=== PATIENT | male | born 1980 | race Hispanic/Latino ===

== ENCOUNTER 2021-06-09 21:16 | Emergency (ER) | payer BC ==
[~2021-06-09] VITALS: Ht 167.6 cm; Wt 85.3 kg
[2021-06-09 22:10] LABS: BASOPHILS % (AUTO) 0.4 % (0.0-5.0); EOSINOPHILS % (AUTO) 0.3 % (0.0-8.0); HEMATOCRIT 45.8 % (42-54); LYMPHOCYTES % (AUTO) 21.1 % (21.0-51.0); MEAN CORPUSCULAR HEMOGLOBIN 31.9 pg (27.0-33.0); MEAN CORPUSCULAR HGB CONC 34.9 g/dL (32.0-36.0); MEAN CORPUSCULAR VOLUME 91.2 fL (79-99); MONOCYTES % (AUTO) 7.4 % (3.0-13.0); NEUTROPHILS % (AUTO) 70.2 % (40.0-77.0); PLATELET COUNT (AUTO) 228 K/uL (130-400); RED BLOOD CELL COUNT(AUTO) 5.02 MIL/uL (4.50-6.20); RED CELL DISTRIBUTION WIDTH 12.5 % (11.0-15.5); WHITE BLOOD COUNT (AUTO) 10.3 K/uL (4.8-10.8)
[2021-06-09 22:22] LABS: APPEARANCE,URINE CLEAR (CLEAR); BILIRUBIN,URINE NEGATIVE (NEGATIVE); COLOR,URINE YELLOW (YELLOW); GLUCOSE, URINE (UA) NEGATIVE (NEGATIVE); KETONES,URINE NEGATIVE (NEGATIVE); LEUKOCYTE ESTERASE ,URINE NEGATIVE (NEGATIVE); NITRATE,URINE NEGATIVE (NEGATIVE); OCCULT BLOOD,URINE NEGATIVE (NEGATIVE); PROTEIN,URINE NEGATIVE (NEGATIVE); UROBILINOGEN,URINE 0.2 mg/dL (0.2-1.0)
[2021-06-09 22:36] LABS: ALBUMIN 4.2 g/dL (3.5-5.0); BILIRUBIN,TOTAL 0.8 mg/dL (0.2-1.0); CREATININE 0.9 mg/dL (0.5-1.5); POTASSIUM 4.3 mmol/L (3.5-5.1); TOTAL PROTEIN, SERUM 8.1 g/dL (6.0-8.3)
[2021-06-09] MEDS ORDERED: HYDR-3422 PO (22:39)
[2021-06-09 23:23] VITALS: BP 132/75
== END 2021-06-09 23:23 | disposition home or self-care (01) ==
LOC: EDH 21:16
DX: F41.9 Anxiety disorder, unspecified (principal); Z79.899 Other long term (current) drug therapy
CPT/HCPCS: 36415; 80053; 81003; 84484; 85025; 93005

== ENCOUNTER 2022-01-15 01:31 | Emergency (ER) | payer BC, OTHER ==
[~2022-01-15] VITALS: Ht 167.6 cm; Wt 95.3 kg
[~2022-01-15 01:31] MED LIST: HYDR-3422 PO
[2022-01-15 01:33] VITALS: BP 144/95
[2022-01-15 02:01] LABS: BASOPHILS % (AUTO) 0.6 % (0.0-5.0); EOSINOPHILS % (AUTO) 2.1 % (0.0-8.0); HEMATOCRIT 45.1 % (42-54); LYMPHOCYTES % (AUTO) 30.8 % (21.0-51.0); MEAN CORPUSCULAR HEMOGLOBIN 31.9 pg (27.0-33.0); MEAN CORPUSCULAR HGB CONC 35.9 g/dL (32.0-36.0); MEAN CORPUSCULAR VOLUME 88.8 fL (79-99); MONOCYTES % (AUTO) 8.6 % (3.0-13.0); NEUTROPHILS % (AUTO) 57.5 % (40.0-77.0); PLATELET COUNT (AUTO) 254 K/uL (130-400); RED BLOOD CELL COUNT(AUTO) 5.08 MIL/uL (4.50-6.20); RED CELL DISTRIBUTION WIDTH 12.1 % (11.0-15.5); WHITE BLOOD COUNT (AUTO) 8.9 K/uL (4.8-10.8)
[2022-01-15 02:03] LABS: APPEARANCE,URINE CLEAR (CLEAR); BILIRUBIN,URINE NEGATIVE (NEGATIVE); COLOR,URINE YELLOW (YELLOW); GLUCOSE, URINE (UA) NEGATIVE (NEGATIVE); KETONES,URINE NEGATIVE (NEGATIVE); LEUKOCYTE ESTERASE ,URINE NEGATIVE Leu/uL (NEGATIVE); NITRATE,URINE NEGATIVE (NEGATIVE); OCCULT BLOOD,URINE NEGATIVE (NEGATIVE); PROTEIN,URINE 10 mg/dL (NEGATIVE); UROBILINOGEN,URINE 3 mg/dL (0.2-1.0)
[2022-01-15 02:11] LABS: MUCUS,URINE RARE LPF (None Seen); RBC,URINE 0-1 /HPF (0-1); WBC,URINE 0-1 /HPF (0-1)
[2022-01-15 02:18] LABS: ALBUMIN 4.1 g/dL (3.5-5.0); POTASSIUM 3.9 mmol/L (3.5-5.1)
[2022-01-15] MEDS ORDERED: ONDA-104 PO (03:04)
[2022-01-15] MEDS ORDERED: OMEP40CA21 PO (03:04)
[2022-01-15] MEDS ORDERED: OSEL75 PO (04:14)
== END 2022-01-15 04:24 | disposition home or self-care (01) ==
LOC: EDH 01:31
DX: J10.1 Influenza due to other identified influenza virus with other respiratory manifestations (principal); Z20.822 Contact with and (suspected) exposure to COVID-19
CPT/HCPCS: 99283; 87635; 80053; 83690; 85025; 87804 ×2; 81001; 36415; C9803

== ENCOUNTER 2022-06-07 04:24 | Emergency (ER) | payer SELFPAY ==
[~2022-06-07] VITALS: Ht 167.6 cm; Wt 96.4 kg
[~2022-06-07 04:24] MED LIST changes: +ONDA-104 PO; +OSEL75 PO
[2022-06-07 04:50] LABS: BASOPHILS % (AUTO) 0.6 % (0.0-5.0); HEMATOCRIT 49.3 % (42-54); MEAN CORPUSCULAR HEMOGLOBIN 31.7 pg (27.0-33.0); MEAN CORPUSCULAR HGB CONC 35.7 g/dL (32.0-36.0); MEAN CORPUSCULAR VOLUME 88.8 fL (79-99); MONOCYTES % (AUTO) 10.2 % (3.0-13.0); NEUTROPHILS % (AUTO) 48.9 % (40.0-77.0); PLATELET COUNT (AUTO) 252 K/uL (130-400); RED BLOOD CELL COUNT(AUTO) 5.55 MIL/uL (4.50-6.20); RED CELL DISTRIBUTION WIDTH 12.7 % (11.0-15.5); WHITE BLOOD COUNT (AUTO) 9.3 K/uL (4.8-10.8)
[2022-06-07 04:51] LABS: APPEARANCE,URINE CLEAR (CLEAR); BILIRUBIN,URINE NEGATIVE (NEGATIVE); COLOR,URINE YELLOW (YELLOW); GLUCOSE, URINE (UA) NEGATIVE (NEGATIVE); KETONES,URINE NEGATIVE (NEGATIVE); LEUKOCYTE ESTERASE ,URINE NEGATIVE Leu/uL (NEGATIVE); NITRATE,URINE NEGATIVE (NEGATIVE); OCCULT BLOOD,URINE NEGATIVE (NEGATIVE); PH,URINE 5.5 (5.0-8.0); PROTEIN,URINE 20 mg/dL (NEGATIVE)
[2022-06-07 04:58] LABS: BACTERIA,URINE FEW /HPF (None Seen); CREATININE 1.1 mg/dL (0.5-1.5); MUCUS,URINE MOD LPF (None Seen); POTASSIUM 3.7 mmol/L (3.5-5.1); SQUAMOUS EPITHELIAL CELL,UR RARE /HPF (0-2)
[2022-06-07] MEDS ORDERED: MORPHINE 2 MG SYG IVP ONE (05:00)
[2022-06-07] MEDS ORDERED: ONDANSETRON 4MG INJ IVP ONE (05:00)
[2022-06-07] MEDS ORDERED: KETOROLAC 30MG VIAL (30MG/ML) IVP ONE (05:00)
[2022-06-07 05:02] LABS: ALBUMIN 3.7 g/dL (3.5-5.0); TOTAL PROTEIN, SERUM 6.6 g/dL (6.0-8.3)
[2022-06-07] MEDS ORDERED: IBUP-1493 PO (05:09)
[2022-06-07] MEDS ORDERED: OMEP40CA21 PO (05:09)
[2022-06-07] MEDS ORDERED: ONDA-104 PO (05:09)
[2022-06-07 05:31] VITALS: BP 124/66
== END 2022-06-07 05:37 | disposition home or self-care (01) ==
LOC: EDH 04:24
DX: K80.20 Calculus of gallbladder without cholecystitis without obstruction (principal); I10 Essential (primary) hypertension; Z79.899 Other long term (current) drug therapy
CPT/HCPCS: 99285; 96374; 76705; 96375; 80053; 83690; 85025; 81001; 36415; J2270; J2405; J1885

== ENCOUNTER 2022-09-01 07:36 | Emergency (ER) | payer BC, OTHER ==
[~2022-09-01] VITALS: Ht 167.6 cm; Wt 94.3 kg
[~2022-09-01 07:36] MED LIST changes: +IBUP-1493 PO; +OMEP40CA21 PO
[2022-09-01] MEDS ORDERED: FAMOTIDINE 20MG TAB PO ONE (08:00)
[2022-09-01] MEDS ORDERED: METOCLOPRAMIDE 10 MG/2 ML VIAL IVP ONE (08:00)
[2022-09-01] MEDS ORDERED: MORPHINE 2 MG SYG IVP ONE (08:00)
[2022-09-01 08:14] LABS: BASOPHILS % (AUTO) 0.7 % (0.0-5.0); EOSINOPHILS % (AUTO) 2.7 % (0.0-8.0); HEMATOCRIT 47.6 % (42-54); LYMPHOCYTES % (AUTO) 29.9 % (21.0-51.0); MEAN CORPUSCULAR HEMOGLOBIN 30.8 pg (27.0-33.0); MEAN CORPUSCULAR HGB CONC 34.7 g/dL (32.0-36.0); PLATELET COUNT (AUTO) 231 K/uL (130-400); RED BLOOD CELL COUNT(AUTO) 5.35 MIL/uL (4.50-6.20); WHITE BLOOD COUNT (AUTO) 7.7 K/uL (4.8-10.8)
[2022-09-01 08:23] LABS: CREATININE 1.1 mg/dL (0.5-1.5); POTASSIUM 4.2 mmol/L (3.5-5.1)
[2022-09-01] MEDS ORDERED: HYDRALAZINE 20MG/ML VIAL IV ONE (08:30)
[2022-09-01 08:31] LABS: ALBUMIN 3.6 g/dL (3.5-5.0); TOTAL PROTEIN, SERUM 6.1 g/dL (6.0-8.3)
[2022-09-01] MEDS ORDERED: METO-296 PO (09:13)
[2022-09-01] MEDS ORDERED: FAMO-136 PO (09:13)
[2022-09-01 09:43] VITALS: BP 127/73
== END 2022-09-01 09:44 | disposition home or self-care (01) ==
LOC: EDH 07:36
DX: K80.20 Calculus of gallbladder without cholecystitis without obstruction (principal); K80.50 Calculus of bile duct without cholangitis or cholecystitis without obstruction; F17.210 Nicotine dependence, cigarettes, uncomplicated; Z79.1 Long term (current) use of non-steroidal anti-inflammatories (NSAID); Z79.899 Other long term (current) drug therapy
CPT/HCPCS: 99284; 96374; 76705; 71045; 96375; 84484; 80053; 83690; 85025; 36415; J2270; J0360; J2765

== ENCOUNTER 2023-01-27 08:23 | Emergency (ER) | payer BC ==
[~2023-01-27] VITALS: Ht 167.6 cm; Wt 87.1 kg
[~2023-01-27 08:23] MED LIST changes: +FAMO-136 PO; +METO-296 PO
[2023-01-27 09:12] LABS: HEMATOCRIT 49.3 % (42-54); MEAN CORPUSCULAR HEMOGLOBIN 30.9 pg (27.0-33.0); MEAN CORPUSCULAR HGB CONC 34.7 g/dL (32.0-36.0); PLATELET COUNT (AUTO) 406 K/uL (130-400); RED BLOOD CELL COUNT(AUTO) 5.54 MIL/uL (4.50-6.20); RED CELL DISTRIBUTION WIDTH 12.8 % (11.0-15.5); WHITE BLOOD COUNT (AUTO) 11.2 K/uL (4.8-10.8)
[2023-01-27 09:27] LABS: POTASSIUM 4.2 mmol/L (3.5-5.1)
[2023-01-27] MEDS ORDERED: ONDANSETRON 4MG INJ IVP ONE (09:30)
[2023-01-27] MEDS ORDERED: KETOROLAC 30MG VIAL (30MG/ML) IVP ONE (09:30)
[2023-01-27 09:32] LABS: ALBUMIN 3.4 g/dL (3.5-5.0); BILIRUBIN,TOTAL 0.9 mg/dL (0.2-1.0); TOTAL PROTEIN, SERUM 7.5 g/dL (6.0-8.3)
[2023-01-27 10:49] VITALS: BP 148/70; PULSE 74; RESP 18; O2SAT 100
[2023-01-27 11:17] LABS: EOSINOPHILS % (MANUAL) 2 % (1-6); LYMPHOCYTES % (MANUAL) 16 % (22-44); MAN.DIFF COMMENT-IMPRESSION MANUAL DIFFERENTIAL; MONOCYTES % (MANUAL) 4 % (2-9); REACTIVE LYMPHOCYTES 1 % (0-0); SEGMENTED NEUTROPHILS % 77 % (40-70); TOTAL CELLS COUNTED 100
[2023-01-27 11:18] LABS: PLATELET MORPHOLOGY COMMENT SLIGHT INCREASED
[2023-01-27] MEDS ORDERED: IBUP-2070 PO (11:29)
== END 2023-01-27 11:38 | disposition home or self-care (01) ==
LOC: EDH 08:23
DX: K80.20 Calculus of gallbladder without cholecystitis without obstruction (principal); F17.200 Nicotine dependence, unspecified, uncomplicated; Z79.899 Other long term (current) drug therapy; Z98.890 Other specified postprocedural states
CPT/HCPCS: 99284; 74176; 96374; 96375; 84484; 80053; 83690; 85025; 36415; 93005; J2405; J1885

== ENCOUNTER 2023-04-03 10:03 | Emergency (ER) | payer BC ==
[~2023-04-03] VITALS: Ht 167.6 cm; Wt 87.1 kg
[~2023-04-03 10:03] MED LIST changes: +IBUP-2070 PO
[2023-04-03 10:04] VITALS: BP 174/99; PULSE 65
[2023-04-03 10:25] LABS: HEMATOCRIT 50.3 % (42-54); MEAN CORPUSCULAR HEMOGLOBIN 30.9 pg (27.0-33.0); MEAN CORPUSCULAR HGB CONC 35.6 g/dL (32.0-36.0); MEAN CORPUSCULAR VOLUME 86.9 fL (79-99); RED BLOOD CELL COUNT(AUTO) 5.79 MIL/uL (4.50-6.20); RED CELL DISTRIBUTION WIDTH 12.9 % (11.0-15.5); WHITE BLOOD COUNT (AUTO) 10.3 K/uL (4.8-10.8)
[2023-04-03 10:36] LABS: APPEARANCE,URINE CLEAR (CLEAR); BILIRUBIN,URINE NEGATIVE (NEGATIVE); COLOR,URINE LIGHT-YELLOW (YELLOW); GLUCOSE, URINE (UA) NEGATIVE (NEGATIVE); KETONES,URINE NEGATIVE (NEGATIVE); LEUKOCYTE ESTERASE ,URINE NEGATIVE Leu/uL (NEGATIVE); NITRATE,URINE NEGATIVE (NEGATIVE); OCCULT BLOOD,URINE NEGATIVE (NEGATIVE); PH,URINE 5.5 (5.0-8.0); PROTEIN,URINE NEGATIVE (NEGATIVE); UROBILINOGEN,URINE 0.2 mg/dL (0.2-1.0)
[2023-04-03 10:40] LABS: ADD UA MICROSCOPIC NO
[2023-04-03] MEDS: MAG/ALUM/SIMETH 30 ML UDCUP PO ONE (10:47)
[2023-04-03] MEDS: PANTOPRAZOLE 40 MG TAB DR PO ONE (10:47)
[2023-04-03] MEDS: KETOROLAC 30MG VIAL (30MG/ML) IM ONE (10:47)
[2023-04-03 11:09] LABS: POTASSIUM 4.7 mmol/L (3.5-5.1)
[2023-04-03 11:13] LABS: ALBUMIN 3.8 g/dL (3.5-5.0); BILIRUBIN,TOTAL 1.1 mg/dL (0.2-1.0); TOTAL PROTEIN, SERUM 7.7 g/dL (6.0-8.3)
== END 2023-04-03 12:25 | disposition home or self-care (01) ==
LOC: EDH 10:03
DX: R10.11 Right upper quadrant pain (principal); F17.200 Nicotine dependence, unspecified, uncomplicated; Z79.1 Long term (current) use of non-steroidal anti-inflammatories (NSAID); Z79.899 Other long term (current) drug therapy
CPT/HCPCS: 99284; 80053; 83690; 85027; 81003; 36415; 96372; J1885

== ENCOUNTER 2023-04-10 01:52 | Emergency (ER) | payer BC ==
[~2023-04-10] VITALS: Ht 167.6 cm; Wt 90.3 kg
[2023-04-10 02:13] LABS: BASOPHILS # (AUTO) 0.04 K/uL (0.00-0.20); BASOPHILS % (AUTO) 0.5 % (0.0-5.0); EOSINOPHILS # (AUTO) 0.13 K/uL (0.00-0.70); EOSINOPHILS % (AUTO) 1.6 % (0.0-8.0); HEMATOCRIT 50.6 % (42-54); IMMATURE GRANULOCYTE ABSOLUTE 0.04 K/uL (0-1); LYMPHOCYTES # (AUTO) 3.2 K/uL (1.0-4.8); LYMPHOCYTES % (AUTO) 39.3 % (21.0-51.0); MEAN CORPUSCULAR HEMOGLOBIN 31.5 pg (27.0-33.0); MONOCYTES # (AUTO) 0.7 K/uL (0.1-1.0); MONOCYTES % (AUTO) 9.1 % (3.0-13.0); PLATELET COUNT (AUTO) 284 K/uL (130-400); RED BLOOD CELL COUNT(AUTO) 5.62 MIL/uL (4.50-6.20); RED CELL DISTRIBUTION WIDTH 12.9 % (11.0-15.5); WHITE BLOOD COUNT (AUTO) 8.1 K/uL (4.8-10.8)
[2023-04-10 02:14] LABS: APPEARANCE,URINE CLEAR (CLEAR); BILIRUBIN,URINE NEGATIVE (NEGATIVE); COLOR,URINE LIGHT-YELLOW (YELLOW); GLUCOSE, URINE (UA) NEGATIVE (NEGATIVE); KETONES,URINE NEGATIVE (NEGATIVE); LEUKOCYTE ESTERASE ,URINE NEGATIVE Leu/uL (NEGATIVE); NITRATE,URINE NEGATIVE (NEGATIVE); OCCULT BLOOD,URINE NEGATIVE (NEGATIVE); PH,URINE 5.5 (5.0-8.0); PROTEIN,URINE 20 mg/dL (NEGATIVE); UROBILINOGEN,URINE 0.2 mg/dL (0.2-1.0)
[2023-04-10 02:20] LABS: ADD UA MICROSCOPIC YES
[2023-04-10 02:21] LABS: MUCUS,URINE RARE LPF (None Seen); RBC,URINE 0-1 /HPF (0-1); WBC,URINE 0-1 /HPF (0-1)
[2023-04-10 02:31] LABS: CREATININE 1.1 mg/dL (0.5-1.5); POTASSIUM 4.2 mmol/L (3.5-5.1)
[2023-04-10 02:36] LABS: ALBUMIN 3.8 g/dL (3.5-5.0); BILIRUBIN,TOTAL 0.9 mg/dL (0.2-1.0); TOTAL PROTEIN, SERUM 7.3 g/dL (6.0-8.3)
[2023-04-10] MEDS: ONDANSETRON 4MG INJ IVP ONE (03:11)
[2023-04-10] MEDS: KETOROLAC 30MG VIAL (30MG/ML) IVP ONE (03:11)
[2023-04-10] MEDS: DICYCLOMINE 20MG (10MG/ML) AMP IM STA (03:19)
[2023-04-10] MEDS ORDERED: DICY20TA2 PO (04:38)
[2023-04-10 04:51] VITALS: BP 12/87; PULSE 64; RESP 17; O2SAT 98
== END 2023-04-10 04:52 | disposition home or self-care (01) ==
LOC: EDH 01:52
DX: K80.20 Calculus of gallbladder without cholecystitis without obstruction (principal); K80.50 Calculus of bile duct without cholangitis or cholecystitis without obstruction; F17.200 Nicotine dependence, unspecified, uncomplicated; Z79.1 Long term (current) use of non-steroidal anti-inflammatories (NSAID); Z79.899 Other long term (current) drug therapy
CPT/HCPCS: 99284; 96374; 76705; 96375; 80053; 83690; 85025; 81001; 36415; 96372; J2405; J1885; J0500

== ENCOUNTER 2023-08-13 11:24 | Emergency (ER) | payer BC, OTHER ==
[~2023-08-13] VITALS: Ht 167.6 cm; Wt 82.6 kg
[~2023-08-13 11:24] MED LIST changes: +DICY20TA2 PO; -FAMO-136 PO; -HYDR-3422 PO; -IBUP-1493 PO; -IBUP-2070 PO; -METO-296 PO; -OMEP40CA21 PO; -ONDA-104 PO; -OSEL75 PO
[2023-08-13] MEDS: KETOROLAC 30MG VIAL (30MG/ML) IVP ONE (13:54)
[2023-08-13 14:09] LABS: BASOPHILS # (AUTO) 0.03 K/uL (0.00-0.20); BASOPHILS % (AUTO) 0.4 % (0.0-5.0); EOSINOPHILS # (AUTO) 0.11 K/uL (0.00-0.70); EOSINOPHILS % (AUTO) 1.5 % (0.0-8.0); HEMATOCRIT 42.6 % (42-54); IMMATURE GRANULOCYTE ABSOLUTE 0.04 K/uL (0-1); LYMPHOCYTES % (AUTO) 14.1 % (21.0-51.0); MEAN CORPUSCULAR HEMOGLOBIN 30.2 pg (27.0-33.0); MEAN CORPUSCULAR HGB CONC 35.2 g/dL (32.0-36.0); MEAN CORPUSCULAR VOLUME 85.7 fL (79-99); MONOCYTES # (AUTO) 0.7 K/uL (0.1-1.0); MONOCYTES % (AUTO) 9.7 % (3.0-13.0); NEUTROPHILS # (AUTO) 5.4 K/uL (1.8-7.7); NEUTROPHILS % (AUTO) 73.8 % (40.0-77.0); PLATELET COUNT (AUTO) 288 K/uL (130-400); RED BLOOD CELL COUNT(AUTO) 4.97 MIL/uL (4.50-6.20); RED CELL DISTRIBUTION WIDTH 12.9 % (11.0-15.5); WHITE BLOOD COUNT (AUTO) 7.3 K/uL (4.8-10.8)
[2023-08-13 14:39] LABS: CREATININE 0.9 mg/dL (0.5-1.3); POTASSIUM 3.9 mmol/L (3.5-5.1)
[2023-08-13 14:40] LABS: ALBUMIN 3.8 g/dL (3.5-5.0)
[2023-08-13] MEDS ORDERED: IOHEXOL 350 MG/ML 100ML INFUS..BTL IV ONE (14:43)
[2023-08-13 15:31] LABS: APPEARANCE,URINE CLEAR (CLEAR); BILIRUBIN,URINE NEGATIVE (NEGATIVE); COLOR,URINE LIGHT-YELLOW (YELLOW); GLUCOSE, URINE (UA) NEGATIVE (NEGATIVE); KETONES,URINE NEGATIVE (NEGATIVE); LEUKOCYTE ESTERASE ,URINE NEGATIVE Leu/uL (NEGATIVE); NITRATE,URINE NEGATIVE (NEGATIVE); OCCULT BLOOD,URINE NEGATIVE (NEGATIVE); PH,URINE 5.5 (5.0-8.0); PROTEIN,URINE NEGATIVE (NEGATIVE); UROBILINOGEN,URINE 0.2 mg/dL (0.2-1.0)
[2023-08-13 15:32] LABS: ADD UA MICROSCOPIC YES
[2023-08-13 15:35] LABS: MUCUS,URINE RARE LPF (None Seen); RBC,URINE 0-1 /HPF (0-1); WBC,URINE 0-1 /HPF (0-1)
[2023-08-13] MEDS ORDERED: IBUP-2077 PO (15:57)
[2023-08-13 16:39] VITALS: BP 132/79; PULSE 84; RESP 18; O2SAT 98
== END 2023-08-13 16:48 | disposition home or self-care (01) ==
LOC: EDH 11:24
DX: G89.18 Other acute postprocedural pain (principal); R07.89 Other chest pain; R10.11 Right upper quadrant pain; F17.200 Nicotine dependence, unspecified, uncomplicated; Z79.899 Other long term (current) drug therapy; Z90.49 Acquired absence of other specified parts of digestive tract
CPT/HCPCS: 99284; 74177; 96374; 84484; 80053; 83690; 85025; 81001; 36415; 93005; J1885; Q9967

== ENCOUNTER 2023-09-12 00:29 | Emergency (ER) | payer BC ==
[~2023-09-12] VITALS: Ht 167.6 cm; Wt 81.6 kg
[~2023-09-12 00:29] MED LIST changes: +IBUP-2077 PO
[2023-09-12 00:51] LABS: APPEARANCE,URINE CLEAR (CLEAR); BILIRUBIN,URINE NEGATIVE (NEGATIVE); COLOR,URINE YELLOW (YELLOW); GLUCOSE, URINE (UA) NEGATIVE (NEGATIVE); KETONES,URINE NEGATIVE (NEGATIVE); LEUKOCYTE ESTERASE ,URINE NEGATIVE Leu/uL (NEGATIVE); NITRATE,URINE NEGATIVE (NEGATIVE); OCCULT BLOOD,URINE NEGATIVE (NEGATIVE); PH,URINE 5.5 (5.0-8.0); PROTEIN,URINE 20 mg/dL (NEGATIVE); UROBILINOGEN,URINE 0.2 mg/dL (0.2-1.0)
[2023-09-12 00:56] LABS: ADD UA MICROSCOPIC YES; BACTERIA,URINE RARE /HPF (None Seen); MUCUS,URINE RARE LPF (None Seen)
[2023-09-12 01:08] LABS: BASOPHILS # (AUTO) 0.03 K/uL (0.00-0.20); BASOPHILS % (AUTO) 0.4 % (0.0-5.0); EOSINOPHILS # (AUTO) 0.16 K/uL (0.00-0.70); EOSINOPHILS % (AUTO) 2.2 % (0.0-8.0); HEMATOCRIT 40.4 % (42-54); IMMATURE GRANULOCYTE ABSOLUTE 0.02 K/uL (0-1); LYMPHOCYTES # (AUTO) 2.3 K/uL (1.0-4.8); LYMPHOCYTES % (AUTO) 32.3 % (21.0-51.0); MEAN CORPUSCULAR HEMOGLOBIN 31.4 pg (27.0-33.0); MEAN CORPUSCULAR HGB CONC 35.6 g/dL (32.0-36.0); MONOCYTES # (AUTO) 0.6 K/uL (0.1-1.0); MONOCYTES % (AUTO) 8.3 % (3.0-13.0); NEUTROPHILS % (AUTO) 56.5 % (40.0-77.0); PLATELET COUNT (AUTO) 314 K/uL (130-400); RED BLOOD CELL COUNT(AUTO) 4.59 MIL/uL (4.50-6.20); RED CELL DISTRIBUTION WIDTH 13.8 % (11.0-15.5); WHITE BLOOD COUNT (AUTO) 7.1 K/uL (4.8-10.8)
[2023-09-12 01:18] LABS: POTASSIUM 3.8 mmol/L (3.5-5.1)
[2023-09-12 01:23] LABS: ALBUMIN 3.6 g/dL (3.5-5.0); BILIRUBIN,TOTAL 0.6 mg/dL (0.2-1.0); TOTAL PROTEIN, SERUM 7.8 g/dL (6.0-8.3)
[2023-09-12] MEDS: ONDANSETRON 4MG INJ IVP ONE (01:33)
[2023-09-12] MEDS: 0.9%NACL 1000ML 1,000 ML IV ONE (01:33)
[2023-09-12] MEDS ORDERED: IOHEXOL 350 MG/ML 100ML INFUS..BTL IV ONE (01:33)
[2023-09-12] MEDS: MORPHINE 2 MG SYG IVP ONE (01:34)
[2023-09-12] MEDS ORDERED: ACET-2079 PO (02:37)
[2023-09-12 02:46] VITALS: BP 154/90; PULSE 90; RESP 18; O2SAT 98
[2023-09-13] MEDS ORDERED: SODIUM CHLORIDE 3% FOR INHALATION 4 ML/AMP VIAL.NEB IH ONE (12:11)
== END 2023-09-12 03:14 | disposition home or self-care (01) ==
LOC: EDH 00:29
DX: C34.32 Malignant neoplasm of lower lobe, left bronchus or lung (principal); C79.51 Secondary malignant neoplasm of bone; G89.29 Other chronic pain; R10.84 Generalized abdominal pain; F17.200 Nicotine dependence, unspecified, uncomplicated; Z79.899 Other long term (current) drug therapy; Z90.49 Acquired absence of other specified parts of digestive tract
CPT/HCPCS: 99285; 71250; 96374; 96361; 96375; 80053; 83690; 85025; 87040 ×2; 87086; 83605; 81001; 36415; 74177; J2270; J7030; J2405; Q9967

== ENCOUNTER 2023-09-13 09:32 | Inpatient (IN) | payer BC ==
[~2023-09-13] VITALS: Ht 167.6 cm; Wt 81.8 kg
[~2023-09-13 09:32] MED LIST changes: +ACET-2079 PO
[2023-09-13] MEDS: GUAIFENESIN-CODEINE 5 ML SYRUP PO ONE (10:05)
[2023-09-13 10:09] LABS: BASOPHILS # (AUTO) 0.04 K/uL (0.00-0.20); BASOPHILS % (AUTO) 0.6 % (0.0-5.0); EOSINOPHILS # (AUTO) 0.17 K/uL (0.00-0.70); EOSINOPHILS % (AUTO) 2.5 % (0.0-8.0); HEMATOCRIT 43.7 % (42-54); IMMATURE GRANULOCYTE ABSOLUTE 0.02 K/uL (0-1); LYMPHOCYTES # (AUTO) 1.8 K/uL (1.0-4.8); LYMPHOCYTES % (AUTO) 27.1 % (21.0-51.0); MEAN CORPUSCULAR VOLUME 88.5 fL (79-99); MONOCYTES # (AUTO) 0.5 K/uL (0.1-1.0); MONOCYTES % (AUTO) 8.1 % (3.0-13.0); NEUTROPHILS # (AUTO) 4.1 K/uL (1.8-7.7); NEUTROPHILS % (AUTO) 61.4 % (40.0-77.0); PLATELET COUNT (AUTO) 328 K/uL (130-400); RED BLOOD CELL COUNT(AUTO) 4.94 MIL/uL (4.50-6.20); RED CELL DISTRIBUTION WIDTH 13.3 % (11.0-15.5); WHITE BLOOD COUNT (AUTO) 6.7 K/uL (4.8-10.8)
[2023-09-13 10:13] LABS: CREATININE 0.9 mg/dL (0.5-1.3); POTASSIUM 4.4 mmol/L (3.5-5.1)
[2023-09-13 10:18] LABS: ALBUMIN 3.4 g/dL (3.5-5.0); BILIRUBIN,TOTAL 0.8 mg/dL (0.2-1.0); TOTAL PROTEIN, SERUM 7.7 g/dL (6.0-8.3)
[2023-09-13 10:25] LABS: SARS-CoV-2, RNA, NAAT NEGATIVE SARS CoV-2 (NEGATIVE)
[2023-09-13 10:31] LABS: INFLUENZA TYPE A Negative For Type A (NEGATIVE)
[2023-09-13 10:43] LABS: INFLUENZA TYPE B Positive For Type B (NEGATIVE)
[2023-09-13] MEDS: ONDANSETRON 4MG INJ IVP ONE (11:17)
[2023-09-13] MEDS: MORPHINE 2 MG SYG IVP ONE (11:17)
[2023-09-13] MEDS: OSELTAMIVIR PHOSPHATE 75 MG CAP PO ONE (11:17)
[2023-09-13] MEDS: 0.9%NACL 1000ML 1,000 ML IV ONE (11:18)
[2023-09-13] MEDS ORDERED: MAGNESIUM 2GM PREMIX 50ML 50 ML IV PRN (12:00)
[2023-09-13] MEDS ORDERED: hydrALAZine 20MG/ML VIAL IV PRN (12:00)
[2023-09-13] MEDS ORDERED: acetaMINOPHEN WITH coDEINE 1 TAB TAB PO PRN (12:00)
[2023-09-13] MEDS ORDERED: POTASSIUM CHLORIDE 20MEQ/100ML 100 ML IV PRN (12:00)
[2023-09-13] MEDS ORDERED: 0.9%NACL 50ML IV SCH (12:00)
[2023-09-13] MEDS ORDERED: POTASSIUM CHLORIDE 10% ELIXIR 20 MEQ/15 ML UDCUP PO PRN (12:00)
[2023-09-13 12:15] VITALS: PULSE 78; RESP 21; O2SAT 96
[2023-09-13] MEDS: ZOSYN 3.375GM +NS 50ML IVPB SCH (12:18)
[2023-09-13] MEDS: 0.9%NACL 1000ML 1,000 ML IV SCH (12:18)
[2023-09-13 12:22] LABS: THYROID STIMULATING HORMONE 0.64 uIU/mL (0.36-3.74)
[2023-09-13] MEDS ORDERED: IOHEXOL 350 MG/ML 100ML INFUS..BTL IV ONE (12:43)
[2023-09-13 12:51] LABS: APPEARANCE,URINE CLEAR (CLEAR); BILIRUBIN,URINE NEGATIVE (NEGATIVE); COLOR,URINE LIGHT-YELLOW (YELLOW); GLUCOSE, URINE (UA) NEGATIVE (NEGATIVE); KETONES,URINE NEGATIVE (NEGATIVE); LEUKOCYTE ESTERASE ,URINE NEGATIVE Leu/uL (NEGATIVE); NITRATE,URINE NEGATIVE (NEGATIVE); OCCULT BLOOD,URINE NEGATIVE (NEGATIVE); PROTEIN,URINE NEGATIVE (NEGATIVE); UROBILINOGEN,URINE 0.2 mg/dL (0.2-1.0)
[2023-09-13 13:00] VITALS: BP 144/91; PULSE 79; RESP 16; O2SAT 99
[2023-09-13 13:10] LABS: ADD UA MICROSCOPIC NO
[2023-09-13 13:25] LABS: INR 0.99 (0.85-1.15); PROTHROMBIN TIME 10.7 SEC (9.6-11.6)
[2023-09-13 13:26] LABS: PARTIAL THROMBOPLASTIN TIME 30.3 SEC (26.3-35.5)
[2023-09-13] MEDS: ALBUTEROL 0.083% 2.5 MG/3 ML INH IH SCH (14:03)
[2023-09-13 14:06] VITALS: PULSE 80; RESP 20
[2023-09-13 17:26] VITALS: BP 138/88; PULSE 74; RESP 16
[2023-09-13] MEDS ORDERED: ALBUTEROL 0.083% 2.5 MG/3 ML INH IH PRN (19:00)
[2023-09-13 19:05] VITALS: BP 121/84; PULSE 74; RESP 18
[2023-09-13 20:00] VITALS: O2SAT 97
[2023-09-13] MEDS: FAMOTIDINE 20MG TAB PO SCH (20:19)
[2023-09-13] MEDS: OSELTAMIVIR PHOSPHATE 75 MG CAP PO SCH (20:19)
[2023-09-13] MEDS: MORPHINE 2 MG SYG IVP PRN (21:58)
[2023-09-14] VITALS (11 sets, daily range): BP systolic 132–148; BP diastolic 83–99; PULSE 63–83; RESP 16–20; O2SAT 94–99
[2023-09-14 03:48] LABS: BASOPHILS # (AUTO) 0.03 K/uL (0.00-0.20); BASOPHILS % (AUTO) 0.5 % (0.0-5.0); EOSINOPHILS % (AUTO) 3.2 % (0.0-8.0); IMMATURE GRANULOCYTE ABSOLUTE 0.02 K/uL (0-1); LYMPHOCYTES # (AUTO) 1.4 K/uL (1.0-4.8); MEAN CORPUSCULAR HEMOGLOBIN 30.4 pg (27.0-33.0); MEAN CORPUSCULAR HGB CONC 35.1 g/dL (32.0-36.0); MEAN CORPUSCULAR VOLUME 86.5 fL (79-99); MONOCYTES # (AUTO) 0.6 K/uL (0.1-1.0); MONOCYTES % (AUTO) 8.9 % (3.0-13.0); NEUTROPHILS # (AUTO) 4.1 K/uL (1.8-7.7); NEUTROPHILS % (AUTO) 65.1 % (40.0-77.0); PLATELET COUNT (AUTO) 294 K/uL (130-400); RED BLOOD CELL COUNT(AUTO) 4.51 MIL/uL (4.50-6.20); RED CELL DISTRIBUTION WIDTH 13.5 % (11.0-15.5); WHITE BLOOD COUNT (AUTO) 6.3 K/uL (4.8-10.8)
[2023-09-14 03:56] LABS: POTASSIUM 3.7 mmol/L (3.5-5.1)
[2023-09-14] MEDS: KCL 20 MEQ ERTAB PO PRN (07:00)
[2023-09-14] MEDS: GUAIFENESIN-CODEINE 5 ML SYRUP PO PRN (10:19)
[2023-09-14 14:26] LABS: INR 1.02 (0.85-1.15)
[2023-09-14 14:27] LABS: PARTIAL THROMBOPLASTIN TIME 28.9 SEC (26.3-35.5)
[2023-09-15] VITALS (30 sets, daily range): BP systolic 116–152; BP diastolic 61–96; PULSE 64–120; RESP 18–22; O2SAT 95–99
[2023-09-15 04:50] LABS: BASOPHILS # (AUTO) 0.03 K/uL (0.00-0.20); BASOPHILS % (AUTO) 0.5 % (0.0-5.0); EOSINOPHILS # (AUTO) 0.27 K/uL (0.00-0.70); EOSINOPHILS % (AUTO) 4.3 % (0.0-8.0); HEMATOCRIT 42.1 % (42-54); IMMATURE GRANULOCYTE ABSOLUTE 0.02 K/uL (0-1); LYMPHOCYTES # (AUTO) 1.9 K/uL (1.0-4.8); LYMPHOCYTES % (AUTO) 30.6 % (21.0-51.0); MEAN CORPUSCULAR HEMOGLOBIN 30.7 pg (27.0-33.0); MEAN CORPUSCULAR HGB CONC 34.7 g/dL (32.0-36.0); MEAN CORPUSCULAR VOLUME 88.4 fL (79-99); MONOCYTES # (AUTO) 0.5 K/uL (0.1-1.0); MONOCYTES % (AUTO) 8.4 % (3.0-13.0); NEUTROPHILS # (AUTO) 3.5 K/uL (1.8-7.7); NEUTROPHILS % (AUTO) 55.9 % (40.0-77.0); PLATELET COUNT (AUTO) 296 K/uL (130-400); RED BLOOD CELL COUNT(AUTO) 4.76 MIL/uL (4.50-6.20); RED CELL DISTRIBUTION WIDTH 13.2 % (11.0-15.5); WHITE BLOOD COUNT (AUTO) 6.3 K/uL (4.8-10.8)
[2023-09-15 05:10] LABS: CREATININE 1.2 mg/dL (0.5-1.3); POTASSIUM 3.6 mmol/L (3.5-5.1)
[2023-09-15] MEDS ORDERED: DEXAMETHASONE SOD PHOSPHATE 10MG/ML 1ML VIAL ONE (13:08)
[2023-09-15] MEDS ORDERED: LIDOCAINE PF 100MG/5ML (2%) SYRINGE 5ML ONE (13:08)
[2023-09-15] MEDS ORDERED: ONDANSETRON 4MG INJ ONE (13:09)
[2023-09-15] MEDS ORDERED: NEOSTIGMINE METHYLSULFATE 1MG/ML IV ONE (13:09)
[2023-09-15] MEDS ORDERED: PROPOFOL 10 MG/ML 20ML VIAL IV ONE ×2 (13:09→13:51)
[2023-09-15] MEDS ORDERED: MIDAZOLAM HCL 1 MG/ML 2ML VIAL ONE (13:09)
[2023-09-15] MEDS ORDERED: GLYCOPYRROLATE 0.2 MG/ML 5 ML VIAL ONE (13:09)
[2023-09-15] MEDS ORDERED: FENTANYL CITRATE PF 50 MCG/1 ML 2ML VIAL ONE (13:09)
[2023-09-15] MEDS ORDERED: ROCURONIUM BROMIDE 10MG/1ML 5ML VL ONE (13:09)
[2023-09-15] MEDS ORDERED: EPINEPHRINE PF 1MG (1:1,000) 1 MG/ML AMP ONE ×2 (13:29→13:36)
[2023-09-16] VITALS (9 sets, daily range): BP systolic 136–145; BP diastolic 78–92; PULSE 85–111; RESP 18–20; O2SAT 95–96
[2023-09-16 05:56] LABS: CREATININE 0.9 mg/dL (0.5-1.3)
[2023-09-16 06:15] LABS: BASOPHILS # (AUTO) 0.01 K/uL (0.00-0.20); BASOPHILS % (AUTO) 0.1 % (0.0-5.0); HEMATOCRIT 43.5 % (42-54); IMMATURE GRANULOCYTE ABSOLUTE 0.04 K/uL (0-1); LYMPHOCYTES # (AUTO) 1.4 K/uL (1.0-4.8); LYMPHOCYTES % (AUTO) 11.5 % (21.0-51.0); MEAN CORPUSCULAR HEMOGLOBIN 30.8 pg (27.0-33.0); MEAN CORPUSCULAR HGB CONC 35.6 g/dL (32.0-36.0); MEAN CORPUSCULAR VOLUME 86.3 fL (79-99); MONOCYTES # (AUTO) 0.6 K/uL (0.1-1.0); MONOCYTES % (AUTO) 4.6 % (3.0-13.0); NEUTROPHILS # (AUTO) 10.1 K/uL (1.8-7.7); NEUTROPHILS % (AUTO) 83.5 % (40.0-77.0); PLATELET COUNT (AUTO) 398 K/uL (130-400); RED BLOOD CELL COUNT(AUTO) 5.04 MIL/uL (4.50-6.20); RED CELL DISTRIBUTION WIDTH 13.2 % (11.0-15.5); WHITE BLOOD COUNT (AUTO) 12.1 K/uL (4.8-10.8)
[2023-09-16 14:14] LABS: IGA (IFE) 218 mg/dL (90-386); IGG (IMMUNOFIXATION) 1058 mg/dL (603-1613); IGM (IMMUNOFIXATION) 112 mg/dL (20-172)
[2023-09-17] VITALS: BP 134/80; PULSE 86; RESP 16
[2023-09-17 03:38] VITALS: BP 127/70; PULSE 73; RESP 18
[2023-09-17 05:10] LABS: HEMATOCRIT 41.9 % (42-54); MEAN CORPUSCULAR HEMOGLOBIN 30.9 pg (27.0-33.0); MEAN CORPUSCULAR HGB CONC 34.6 g/dL (32.0-36.0); MEAN CORPUSCULAR VOLUME 89.1 fL (79-99); RED BLOOD CELL COUNT(AUTO) 4.7 MIL/uL (4.50-6.20); RED CELL DISTRIBUTION WIDTH 13.3 % (11.0-15.5); WHITE BLOOD COUNT (AUTO) 10.2 K/uL (4.8-10.8)
[2023-09-17 05:26] LABS: POTASSIUM 3.6 mmol/L (3.5-5.1)
[2023-09-17 08:00] VITALS: O2SAT 96
[2023-09-17 08:04] VITALS: BP 117/70; PULSE 65; RESP 18
[2023-09-17] MEDS ORDERED: OSEL75 PO (09:41)
[2023-09-17 11:56] VITALS: BP 135/74; PULSE 80; RESP 18
[2023-09-17] MEDS ORDERED: TRAMADOL HCL 50 MG TABLET PO PRN (12:00)
[2023-09-17] MEDS: TRAMADOL HCL 50 MG TABLET PO ONE (12:30)
== END 2023-09-17 15:00 | disposition home or self-care (01) | DRG 180 ==
LOC: EDH 09:32 → EDHIP 11:34 → 2AH 12:43 → 3DH 09-14 12:12
PROVIDERS: ADMIT Internal Medicine; ATTEND Internal Medicine
PROC: 0BDB8ZX Extraction of Left Lower Lobe Bronchus, Via Natural or Artificial Opening Endoscopic, Diagnostic (ICD-10-PCS; principal; 2023-09-15)
PROC: 0BCB8ZZ Extirpation of Matter from Left Lower Lobe Bronchus, Via Natural or Artificial Opening Endoscopic (ICD-10-PCS; 2023-09-15)
DX: C34.92 Malignant neoplasm of unspecified part of left bronchus or lung (principal); J18.9 Pneumonia, unspecified organism; R04.2 Hemoptysis; D62 Acute posthemorrhagic anemia; K81.0 Acute cholecystitis; J90 Pleural effusion, not elsewhere classified; M48.54XA Collapsed vertebra, not elsewhere classified, thoracic region, initial encounter for fracture; J10.1 Influenza due to other identified influenza virus with other respiratory manifestations; R91.8 Other nonspecific abnormal finding of lung field; E66.9 Obesity, unspecified; I10 Essential (primary) hypertension; Z68.29 Body mass index [BMI] 29.0-29.9, adult; E66.01 Morbid (severe) obesity due to excess calories; R63.4 Abnormal weight loss; Z90.49 Acquired absence of other specified parts of digestive tract; Z87.891 Personal history of nicotine dependence; Z79.899 Other long term (current) drug therapy
CPT/HCPCS: 36415; 45380; 71045; 71275; 72146; 72148; 72195; 80048; 80053; 81003; 82784; 83036; 83605; 83615; 84145; 84443; 85025; 85027; 85610; 85730; 86140; 86334; 87071; 87205; 87635; 87804; 88305; 94640; 94664; 96361; 96374; 96375; A4606; G0378; J0171; J1100; J2001; J2250; J2270; J2405; J2543; J2704; J2710; J3010; J3490; J7030; Q9967; A4216; A4222; A4223; A4657; A7002

== ENCOUNTER 2023-09-26 08:28 | Emergency (ER) | payer BC ==
[~2023-09-26] VITALS: Ht 167.6 cm; Wt 79.4 kg
[~2023-09-26 08:28] MED LIST changes: +OSEL75 PO
[2023-09-26 10:01] LABS: BASOPHILS # (AUTO) 0.05 K/uL (0.00-0.20); BASOPHILS % (AUTO) 0.5 % (0.0-5.0); EOSINOPHILS # (AUTO) 0.21 K/uL (0.00-0.70); EOSINOPHILS % (AUTO) 2.3 % (0.0-8.0); IMMATURE GRANULOCYTE ABSOLUTE 0.04 K/uL (0-1); LYMPHOCYTES # (AUTO) 1.8 K/uL (1.0-4.8); LYMPHOCYTES % (AUTO) 19.8 % (21.0-51.0); MEAN CORPUSCULAR HEMOGLOBIN 30.6 pg (27.0-33.0); MEAN CORPUSCULAR HGB CONC 35.1 g/dL (32.0-36.0); MEAN CORPUSCULAR VOLUME 87.2 fL (79-99); MONOCYTES # (AUTO) 0.6 K/uL (0.1-1.0); MONOCYTES % (AUTO) 6.9 % (3.0-13.0); NEUTROPHILS # (AUTO) 6.5 K/uL (1.8-7.7); NEUTROPHILS % (AUTO) 70.1 % (40.0-77.0); PLATELET COUNT (AUTO) 377 K/uL (130-400); RED BLOOD CELL COUNT(AUTO) 5.16 MIL/uL (4.50-6.20); RED CELL DISTRIBUTION WIDTH 12.7 % (11.0-15.5); WHITE BLOOD COUNT (AUTO) 9.3 K/uL (4.8-10.8)
[2023-09-26 10:10] LABS: POTASSIUM 4.1 mmol/L (3.5-5.1)
[2023-09-26] MEDS ORDERED: IOHEXOL-350 75 ML VIAL IV ONE (10:42)
[2023-09-26 10:55] LABS: ALBUMIN 3.6 g/dL (3.5-5.0); BILIRUBIN,DIRECT 0.2 mg/dL (0.0-0.3)
[2023-09-26] MEDS: MORPHINE 5 MG/ML VIAL (5MG OR GREATER DOSE) IV ONE (11:04)
[2023-09-26 14:02] LABS: APPEARANCE,URINE CLEAR (CLEAR); BILIRUBIN,URINE NEGATIVE (NEGATIVE); COLOR,URINE YELLOW (YELLOW); GLUCOSE, URINE (UA) NEGATIVE (NEGATIVE); KETONES,URINE NEGATIVE (NEGATIVE); LEUKOCYTE ESTERASE ,URINE NEGATIVE Leu/uL (NEGATIVE); NITRATE,URINE NEGATIVE (NEGATIVE); OCCULT BLOOD,URINE NEGATIVE (NEGATIVE); PH,URINE 5.5 (5.0-8.0); PROTEIN,URINE 10 mg/dL (NEGATIVE); UROBILINOGEN,URINE 0.2 mg/dL (0.2-1.0)
[2023-09-26 14:04] LABS: ADD UA MICROSCOPIC YES
[2023-09-26 14:06] LABS: MUCUS,URINE RARE LPF (None Seen); SQUAMOUS EPITHELIAL CELL,UR RARE /HPF (0-2); WBC,URINE 0-1 /HPF (0-1)
[2023-09-26] MEDS: KETOROLAC 30MG VIAL (30MG/ML) IVP ONE (14:28)
[2023-09-26] MEDS: FENTANYL 25 MCG/HR PATCH TD ONE (14:28)
[2023-09-26] MEDS ORDERED: IBUP-2077 PO (15:04)
[2023-09-26 15:20] VITALS: BP 128/81; PULSE 86; RESP 18; O2SAT 96
== END 2023-09-26 16:32 | disposition home or self-care (01) ==
LOC: EDH 08:28
DX: R91.8 Other nonspecific abnormal finding of lung field (principal); C41.2 Malignant neoplasm of vertebral column; D49.1 Neoplasm of unspecified behavior of respiratory system; F17.200 Nicotine dependence, unspecified, uncomplicated; Z90.49 Acquired absence of other specified parts of digestive tract
CPT/HCPCS: 99284; 96374; 71270; 71046; 96375; 80076; 84484; 80048; 83690; 85025; 81001; 36415; 93005; J2270; J1885; Q9967

== ENCOUNTER 2023-09-27 23:35 | Emergency (ER) | payer BC ==
[~2023-09-27] VITALS: Ht 167.6 cm; Wt 78.9 kg
[2023-09-27 23:57] LABS: BASOPHILS # (AUTO) 0.05 K/uL (0.00-0.20); BASOPHILS % (AUTO) 0.5 % (0.0-5.0); EOSINOPHILS # (AUTO) 0.34 K/uL (0.00-0.70); EOSINOPHILS % (AUTO) 3.6 % (0.0-8.0); HEMATOCRIT 43.3 % (42-54); IMMATURE GRANULOCYTE ABSOLUTE 0.03 K/uL (0-1); LYMPHOCYTES # (AUTO) 2.5 K/uL (1.0-4.8); LYMPHOCYTES % (AUTO) 26.4 % (21.0-51.0); MEAN CORPUSCULAR HEMOGLOBIN 30.5 pg (27.0-33.0); MEAN CORPUSCULAR HGB CONC 35.3 g/dL (32.0-36.0); MEAN CORPUSCULAR VOLUME 86.4 fL (79-99); MONOCYTES # (AUTO) 0.6 K/uL (0.1-1.0); MONOCYTES % (AUTO) 6.8 % (3.0-13.0); NEUTROPHILS # (AUTO) 5.9 K/uL (1.8-7.7); NEUTROPHILS % (AUTO) 62.4 % (40.0-77.0); PLATELET COUNT (AUTO) 393 K/uL (130-400); RED BLOOD CELL COUNT(AUTO) 5.01 MIL/uL (4.50-6.20); RED CELL DISTRIBUTION WIDTH 12.7 % (11.0-15.5); WHITE BLOOD COUNT (AUTO) 9.4 K/uL (4.8-10.8)
[2023-09-28] LABS: APPEARANCE,URINE CLEAR (CLEAR); BILIRUBIN,URINE NEGATIVE (NEGATIVE); COLOR,URINE LIGHT-YELLOW (YELLOW); GLUCOSE, URINE (UA) NEGATIVE (NEGATIVE); KETONES,URINE NEGATIVE (NEGATIVE); LEUKOCYTE ESTERASE ,URINE NEGATIVE Leu/uL (NEGATIVE); NITRATE,URINE NEGATIVE (NEGATIVE); OCCULT BLOOD,URINE NEGATIVE (NEGATIVE); PROTEIN,URINE 10 mg/dL (NEGATIVE); UROBILINOGEN,URINE 0.2 mg/dL (0.2-1.0)
[2023-09-28 00:01] LABS: ADD UA MICROSCOPIC NO; MUCUS,URINE RARE LPF (None Seen); RBC,URINE 0-1 /HPF (0-1); SQUAMOUS EPITHELIAL CELL,UR RARE /HPF (0-2)
[2023-09-28 00:08] LABS: CREATININE 1.1 mg/dL (0.5-1.3); POTASSIUM 4.1 mmol/L (3.5-5.1)
[2023-09-28 00:22] LABS: B-TYPE NATRIURETIC PEPTIDE 31 pg/mL (0-100)
[2023-09-28] MEDS: MORPHINE 4 MG SYG IVP ONE (02:12)
[2023-09-28] MEDS ORDERED: FENT1PAT62 TD (03:10)
[2023-09-28 03:23] VITALS: BP 129/84; PULSE 77; RESP 20; O2SAT 96
== END 2023-09-28 03:25 | disposition home or self-care (01) ==
LOC: EDH 23:35
DX: C34.32 Malignant neoplasm of lower lobe, left bronchus or lung (principal); C79.51 Secondary malignant neoplasm of bone; Z79.899 Other long term (current) drug therapy; Z90.49 Acquired absence of other specified parts of digestive tract
CPT/HCPCS: 99284; 71045; 82550; 84484 ×2; 80048; 83880; 85025; 81003; 36415 ×2; 93005; 96374; J2270

== ENCOUNTER 2023-11-17 16:09 | Emergency (ER) | payer BC ==
[~2023-11-17] VITALS: Ht 167.6 cm; Wt 76.2 kg
[~2023-11-17 16:09] MED LIST changes: +FENT1PAT62 TD
[2023-11-17 16:34] LABS: BASOPHILS # (AUTO) 0.01 K/uL (0.00-0.20); BASOPHILS % (AUTO) 0.3 % (0.0-5.0); EOSINOPHILS # (AUTO) 0.04 K/uL (0.00-0.70); EOSINOPHILS % (AUTO) 1.2 % (0.0-8.0); HEMATOCRIT 34.5 % (42-54); IMMATURE GRANULOCYTE ABSOLUTE 0.01 K/uL (0-1); LYMPHOCYTES # (AUTO) 0.9 K/uL (1.0-4.8); LYMPHOCYTES % (AUTO) 24.7 % (21.0-51.0); MEAN CORPUSCULAR HEMOGLOBIN 30.2 pg (27.0-33.0); MEAN CORPUSCULAR HGB CONC 34.8 g/dL (32.0-36.0); MEAN CORPUSCULAR VOLUME 86.9 fL (79-99); MONOCYTES # (AUTO) 0.5 K/uL (0.1-1.0); MONOCYTES % (AUTO) 14.2 % (3.0-13.0); NEUTROPHILS % (AUTO) 59.3 % (40.0-77.0); PLATELET COUNT (AUTO) 414 K/uL (130-400); RED BLOOD CELL COUNT(AUTO) 3.97 MIL/uL (4.50-6.20); RED CELL DISTRIBUTION WIDTH 14.5 % (11.0-15.5); WHITE BLOOD COUNT (AUTO) 3.4 K/uL (4.8-10.8)
[2023-11-17 16:43] LABS: CREATININE 0.9 mg/dL (0.5-1.3); POTASSIUM 3.8 mmol/L (3.5-5.1)
[2023-11-17 18:17] LABS: RAPID GROUP A STREP negative (NEGATIVE)
[2023-11-17 18:19] LABS: SARS-CoV-2, RNA, NAAT NEGATIVE SARS CoV-2 (NEGATIVE)
[2023-11-17 18:27] LABS: INFLUENZA TYPE A Negative For Type A (NEGATIVE); INFLUENZA TYPE B Negative For Type B (NEGATIVE)
[2023-11-17 19:54] VITALS: BP 129/83; PULSE 81; RESP 15; TEMP 98.5; O2SAT 98
== END 2023-11-17 20:23 | disposition home or self-care (01) ==
LOC: EDH 16:09
DX: J06.9 Acute upper respiratory infection, unspecified (principal); B34.9 Viral infection, unspecified; F17.200 Nicotine dependence, unspecified, uncomplicated; Z90.49 Acquired absence of other specified parts of digestive tract; Z20.822 Contact with and (suspected) exposure to COVID-19
CPT/HCPCS: 36415; 71045; 80048; 85025; 87635; 87804; 87880; 93005

== ENCOUNTER 2024-01-04 09:02 | Emergency (ER) | payer BC ==
[~2024-01-04] VITALS: Ht 167.6 cm; Wt 69.9 kg
[2024-01-04 09:03] VITALS: TEMP 97.8
[2024-01-04 09:49] LABS: BASOPHILS # (AUTO) 0.04 K/uL (0.00-0.20); BASOPHILS % (AUTO) 0.7 % (0.0-5.0); EOSINOPHILS # (AUTO) 0.05 K/uL (0.00-0.70); EOSINOPHILS % (AUTO) 0.9 % (0.0-8.0); HEMATOCRIT 30.2 % (42-54); IMMATURE GRANULOCYTE ABSOLUTE 0.04 K/uL (0-1); LYMPHOCYTES # (AUTO) 0.9 K/uL (1.0-4.8); LYMPHOCYTES % (AUTO) 15.9 % (21.0-51.0); MEAN CORPUSCULAR HEMOGLOBIN 29.8 pg (27.0-33.0); MEAN CORPUSCULAR HGB CONC 33.1 g/dL (32.0-36.0); MEAN CORPUSCULAR VOLUME 89.9 fL (79-99); MONOCYTES # (AUTO) 0.7 K/uL (0.1-1.0); MONOCYTES % (AUTO) 12.9 % (3.0-13.0); NEUTROPHILS # (AUTO) 3.9 K/uL (1.8-7.7); NEUTROPHILS % (AUTO) 68.9 % (40.0-77.0); PLATELET COUNT (AUTO) 382 K/uL (130-400); RED BLOOD CELL COUNT(AUTO) 3.36 MIL/uL (4.50-6.20); WHITE BLOOD COUNT (AUTO) 5.7 K/uL (4.8-10.8)
[2024-01-04 10:21] LABS: CREATININE 0.6 mg/dL (0.5-1.3); POTASSIUM 3.9 mmol/L (3.5-5.1)
--- NOTE | 2024-01-04 10:21 | HMCIMG ---
ULTRASOUND OF THE PELVIS INDICATION: Pelvic pain COMPARISONS: None TECHNIQUE: Transabdominal real-time sonographic images were acquired earlier, and subsequently made available for review. FINDINGS/IMPRESSION: Urinary bladder is nearly empty. No free fluid demonstrated. Prostate gland volume = 15 cc (prostate gland measures 3.2 x 2.4 x 3.0 cm).
[2024-01-04] MEDS: ketOROlac 30MG VIAL (30MG/ML) IM ONE (10:31)
--- NOTE | 2024-01-04 10:32 | NUR ---
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 ED MD JUST ORDERED KETOLORAC
--- NOTE | 2024-01-04 10:39 | NUR ---
WATER PROVIDED TO PT SO THAT HE MAY VOID.
[2024-01-04 11:16] LABS: APPEARANCE,URINE CLEAR (CLEAR); BILIRUBIN,URINE NEGATIVE (NEGATIVE); COLOR,URINE YELLOW (YELLOW); GLUCOSE, URINE (UA) NEGATIVE (NEGATIVE); KETONES,URINE NEGATIVE (NEGATIVE); LEUKOCYTE ESTERASE ,URINE 250 Leu/uL (NEGATIVE); NITRATE,URINE NEGATIVE (NEGATIVE); OCCULT BLOOD,URINE NEGATIVE (NEGATIVE); PH,URINE 6.5 (5.0-8.0); PROTEIN,URINE NEGATIVE (NEGATIVE)
[2024-01-04 11:21] LABS: ADD UA MICROSCOPIC YES
[2024-01-04 11:26] LABS: MUCUS,URINE RARE LPF (None Seen)
[2024-01-04] MEDS ORDERED: CEPH500B PO (11:31)
--- NOTE | 2024-01-04 11:31 | ERN ---
General Chief Complaint: Abdominal Pain Stated Complaint: LOWER ABDOMINAL PAIN Time Seen by MD: 09:03 Source: patient History of Present Illness Initial Comments Patient is a 43-year-old male coming in to be evaluated for lower abdominal pain. Patient states that this discomfort has been present for a couple of days. No fever no chills mild dysuria at times. Allergies: Coded Allergies: No Known Drug Allergies (Verified Allergy, Unknown, 09/13/23) Home Meds Active Scripts Fentanyl (Fentanyl) 75 Mcg/Hour Patch.td72, 1 EACH TD ONCE for 3 Days, #1 PATCH 0 Refills Prov:KATIA SR MD 09/28/23 Ibuprofen (Ibuprofen 800 mg Tab) 800 Mg Tab, 800 MG PO Q6H PRN for PAIN for 30 Days, #120 TAB 0 Refills Prov:ROCIO MORSE MD 09/26/23 Oseltamivir Phosphate (Tamiflu) 75 Mg Cap, 75 MG PO BID, #2 CAP 0 Refills Prov:RUT WISE AGPCNP 09/17/23 Acetaminophen with Codeine (Acetaminophen-Cod #3 Tablet) 300 Mg-30 Mg Tablet, 1 TAB PO Q6H PRN for MODERATE PAIN, #30 TAB Prov:BORA KEANE NP 09/12/23 Ibuprofen (Ibuprofen 800 mg Tab) 800 Mg Tab, 800 MG PO Q6H PRN for PAIN, #30 TAB Prov:BORA KEANE CORE WINDING OPERATOR 08/13/23 Dicyclomine HCl (Bentyl) 20 Mg Tab, 20 MG PO TIDP PRN for PAIN, #60 TAB Prov:CLAY SONG MD 04/10/23 Past Medical History Past Medical History: Other Medical History Other: CHRONIC BACK PAIN, NEOPLASM LT LOWER LOBE, HEMOPTYSIS, SPINAL METASTAISIS Past Surgical History: Cholecystectomy Family History Family History: Negative Social History Social History: Smokers, ETOH ROS Dictation CONSTITUTIONAL: No chills, no fever, no weakness, no diaphoresis, no malaise. HEAD/FACE: No signs of trauma. EENT: No eye pain, no blurred vision, no tearing, no double vision, no ear pain, no ear discharge, no nose pain, no nasal congestion, no throat pain, no throat swelling, no mouth pain. RESPIRATORY: No cough, no orthopnea, no SOB, no stridor, no wheezing. CARDIOVASCULAR: No chest pain, no edema, no palpitations, no syncope. GASTROINTESTINAL/ABDOMINAL: Suprapubic discomfort, no constipation, no diarrhea, no nausea, no vomiting. GENITOURINARY: No abnormal discharge, no dysuria, no frequent urination, no hematuria. No complaints of pain in the genitals. MUSCULOSKELETAL: No back pain, no gout, no joint pain, no joint swelling, no muscle pain, no muscle stiffness, no neck pain. INTEGUMENTARY: No change in color, no change in hair/nails, no dryness, no lesion, no lumps, no rash. NEUROLOGICAL/PSYCH: No anxiety, not depressed, no emotional problem, no headache, no numbness, no pre-existing deficit, no history of seizures, no tremors, no weakness. HEMATOLOGIC/LYMPHATIC: Not anemic, no history of blood clots, no apparent bleeding, no bruising, glands not swollen. All Systems Negative, Except as Noted. Physical Exam Physical Exam Dictation VITAL SIGNS: Reviewed. GENERAL APPEARANCE: Alert, oriented x3, no acute distress, obese. HEAD AND FACE: Non-traumatic. EYES: PERRL, pink conjunctivas, eyelid no trauma, anterior chamber clear. EARS: Pinnas intact and no signs of trauma or erythema. Ear canals clear and no discharge. TMs no erythema. NOSE: No discharge, no bleeding. OROPHARYNX: Mouth normal, teeth no caries, tongue pink. Pharynx clear, no erythema. Tonsils no exudates, no abscesses noted. Mucous membrane moist. NECK: Supple, non-tender, no thyromegaly, no masses, no JVD, no bruits. BREAST: Deferred. CHEST: No tenderness, no crepitus, no paradoxical movement, no retractions. LUNGS: Clear, well-ventilated, symmetric, no rales, no wheezing, no rhonchi, no stridor, good breath sounds bilaterally. HEART: Regular rate, regular rhythm, no murmur, no gallops. VASCULAR: No peripheral edema. ABDOMEN: Soft, positive bowel sounds, nondistended, no guarding, suprapubic tender, no rebound, no masses no hepatomegaly, no splenomegaly, no Nunes's sign, no hernias. RECTAL: Deferred. GENITAL: Deferred. NEUROLOGICAL: Normal speech, gross motor function intact, gross sensory function intact. MUSCULOSKELETAL: Neck nontender, full range of motion, back nontender, full range of motion. EXTREMITIES: Nontender, full range of motion. SKIN: Color pink, dry, no turgor, no rash, no lacerations, no abrasions, no contusions. LYMPHATICS: Deferred. Results Laboratory and Microbiology Lab and Micro Result Laboratory Tests Test 01/04/24 09:41 01/04/24 10:44 White Blood Count 5.7 K/uL (4.8-10.8) Red Blood Count 3.36 MIL/uL (4.50-6.20) L Hemoglobin 10.0 g/dL (14.0-18.0) L Hematocrit 30.2 % (42-54) L Mean Corpuscular Volume 89.9 fL (79-99) Mean Corpuscular Hemoglobin 29.8 pg (27.0-33.0) Mean Corpuscular Hemoglobin Concent 33.1 g/dL (32.0-36.0) Red Cell Distribution Width 17.0 % (11.0-15.5) H Platelet Count 382 K/uL (130-400) Mean Platelet Volume 8.4 fL (7.5-10.5) Immature Granulocyte % (Auto) 0.7 % (0-1) Neutrophils (%) (Auto) 68.9 % (40.0-77.0) Lymphocytes (%) (Auto) 15.9 % (21.0-51.0) L Monocytes (%) (Auto) 12.9 % (3.0-13.0) Eosinophils (%) (Auto) 0.9 % (0.0-8.0) Basophils (%) (Auto) 0.7 % (0.0-5.0) Neutrophils # (Auto) 3.9 K/uL (1.8-7.7) Lymphocytes # (Auto) 0.9 K/uL (1.0-4.8) L Monocytes # (Auto) 0.7 K/uL (0.1-1.0) Eosinophils # (Auto) 0.05 K/uL (0.00-0.70) Basophils # (Auto) 0.04 K/uL (0.00-0.20) Absolute Immature Granulocyte (auto 0.04 K/uL (0-1) Nucleated Red Blood Cells 0.0 % (0.0-0.19) Sodium Level 140 mmol/L (136-145) Potassium Level 3.9 mmol/L (3.5-5.1) Chloride Level 104 mmol/L (101-111) Carbon Dioxide Level 29 mmol/L (21-32) Blood Urea Nitrogen 5 mg/dL (7-18) L Creatinine 0.6 mg/dL (0.5-1.3) Glomerular Filtration Rate Calc 123 mL/min (>90) Random Glucose 94 mg/dL (70-105) Total Calcium 8.6 mg/dL (8.5-10.1) Urine Color YELLOW (YELLOW) Urine Appearance CLEAR (CLEAR) Urine pH 6.5 (5.0-8.0) Urine Specific [place] 1.017 (1.001-1.031) Urine Protein NEGATIVE mg/dL (NEGATIVE) Urine Glucose (UA) NEGATIVE mg/dL (NEGATIVE) Urine Ketones NEGATIVE mg/dL (NEGATIVE) Urine Occult Blood NEGATIVE (NEGATIVE) Urine Nitrate NEGATIVE (NEGATIVE) Urine Bilirubin NEGATIVE mg/dL (NEGATIVE) Urine Urobilinogen 2.0 mg/dL (0.2-1.0) H Urine Leukocyte Esterase 250 Rylee/uL (NEGATIVE) H MDM MDM: Differential diagnosis: UTI, dysuria Patient is a 43-year-old male coming in to be evaluated for lower abdominal discomfort. Laboratory workup positive for urinary tract infection. Patient will be discharged with a diagnosis of UTI. ED Course Orders Procedure Category Date Status Time Cbc With Differential LAB 01/04/24 Complete 09:16 Urinalysis Profile LAB 01/04/24 Complete 09:16 Basic Metabolic Panel LAB 01/04/24 Complete 09:16 Us Pelvic Non-Ob Comp US 01/04/24 Resulted 09:16 Ketorolac PHA 01/04/24 Complete Tromethamine 30mg/Ml 10:30 Current Medications Medications (Trade) Dose Ordered Sig/Williams Route PRN Reason Start Time Stop Time Status Last Admin Dose Admin Ketorolac Tromethamine (toRADol) 30 mg ONCE ONCE IM 01/04/24 10:30 01/04/24 10:31 DC 01/04/24 10:31 Vital Signs Date Time Temp Pulse Resp B/P (MAP) Pulse Ox O2 Delivery O2 Flow Rate FiO2 01/04/24 10:37 93 14 113/83 99 Room Air* 0 21 01/04/24 09:03 97.9 94 16 159/143 98 Room Air 0 DX & DISP Disposition: Discharge Departure Impression: Primary Impression: Cystitis Condition: Stable Scripts Cephalexin Monohydrate (Keflex) 500 Mg Cap 1 CAP PO BID for 10 Days, #20 CAP 0 Refills Prov: DAMARIS ESQUIVEL MD 01/04/24 Additional Instructions: FOLLOW-UP WITH PRIMARY CARE PROVIDER IN 1 TO 2 DAYS. TAKE MEDICATIONS DIRECTED HERE IN THE EMERGENCY ROOM. OKAY TO CONTINUE HOME MEDICATIONS UNLESS OTHERWISE DISCUSSED DURING YOUR VISIT IN THE EMERGENCY ROOM TODAY. RETURN TO YOUR NEAREST EMERGENCY ROOM IF SYMPTOMS WORSEN OR IF THERE IS NO IMPROVEMENT. CALL 911 IF YOU NEED IMMEDIATE ASSISTANCE. TAKE TYLENOL [id number] NEEDED AND IF NO CONTRAINDICATIONS ARE PRESENT. INCREASE ORAL HYDRATION. A W OUND CULTURE OR URINE CULTURE WAS ORDERED HERE IN THE EMERGENCY ROOM DEPARTMENT PLEASE FOLLOW-UP WITH PRIMARY CARE PROVIDER AND ADVISE THEM TO GET REPEAT PORTS FROM OUR FACILITY. IF YOU HAD ANY DANIEL WRAP/SPLINTS THAT WERE APPLIED HERE, PLEASE DO NOT REMOVE THEM UNTIL YOU SEE YOUR PRIMARY CARE OR SPECIALTY. Referrals: Referrals: REJI SINGH MD (PCP) Time of Disposition: 11:29 DAMARIS ESQUIVEL MD Jan 04, 2024 11:31
--- NOTE | 2024-01-04 11:57 | NUR ---
FORGOT TO GIVE SCRIPT TO PT BUT CALLED AND SENT TO [employer] AND IN INFORMED HIM VIA VOICE MESSAGE TO RETURN FOR SCRIPT.
[2024-01-04 11:59] VITALS: BP 115/77; PULSE 82; RESP 20; O2SAT 99
== END 2024-01-04 11:56 | disposition home or self-care (01) ==
LOC: EDH 09:02
DX: N30.90 Cystitis, unspecified without hematuria (principal); F17.200 Nicotine dependence, unspecified, uncomplicated; Z79.899 Other long term (current) drug therapy; Z90.49 Acquired absence of other specified parts of digestive tract
CPT/HCPCS: 99284; 76856; 80048; 85025; 87086; 81001; 36415; 96372; J1885

== ENCOUNTER 2024-03-19 16:00 | Emergency (ER) | payer BC ==
[~2024-03-19] VITALS: Ht 167.6 cm; Wt 72.6 kg
[~2024-03-19 16:00] MED LIST changes: +CEPH500B PO
[2024-03-19 16:07] VITALS: BP 131/91; PULSE 91; RESP 16; TEMP 98.4; O2SAT 99
[2024-03-19] MEDS ORDERED: ALPR0.5T PO (16:51)
[2024-03-19] MEDS ORDERED: HYD25 PO (16:51)
--- NOTE | 2024-03-19 16:52 | ERN ---
General Chief Complaint: Anxiety/Panic Attack Stated Complaint: ANXIETY Time Seen by MD: 16:02 History of Present Illness Initial Comments 44-year-old male, history of lung cancer currently being treated with radiation and chemotherapy, presents for anxiety. Patient reports that yesterday he had a CT scan with dye, he felt very claustrophobic and anxious during the procedure. Afterwards he reports he remains feeling quite anxious. He says he has been thinking a lot about his cancer and he is getting quite worried. His partner says that he has been pacing up and down. He denies any chest pain shortness of breath palpitations or any sort of physical symptoms. He reiterated to me multiple times that his body feels fine but he feels like it is his mind. He has never had this before. Denies drug abuse. He reports that he thinks it is related to all the procedures. Allergies: Coded Allergies: No Known Drug Allergies (Verified Allergy, Unknown, 09/13/23) Home Meds Active Scripts Cephalexin Monohydrate (Keflex) 500 Mg Cap, 1 CAP PO BID for 10 Days, #20 CAP 0 Refills Prov:DAMARIS ESQUIVEL MD 01/04/24 Fentanyl (Fentanyl) 75 Mcg/Hour Patch.td72, 1 EACH TD ONCE for 3 Days, #1 PATCH 0 Refills Prov:KATIA SR MD 09/28/23 Ibuprofen (Ibuprofen 800 mg Tab) 800 Mg Tab, 800 MG PO Q6H PRN for PAIN for 30 Days, #120 TAB 0 Refills Prov:ROCIO MORSE MD 09/26/23 Oseltamivir Phosphate (Tamiflu) 75 Mg Cap, 75 MG PO BID, #2 CAP 0 Refills Prov:RUT WISE AGPCNP 09/17/23 Acetaminophen with Codeine (Acetaminophen-Cod #3 Tablet) 300 Mg-30 Mg Tablet, 1 TAB PO Q6H PRN for MODERATE PAIN, #30 TAB Prov:BORA KEANE NP 09/12/23 Ibuprofen (Ibuprofen 800 mg Tab) 800 Mg Tab, 800 MG PO Q6H PRN for PAIN, #30 TAB Prov:BORA KEANE NP 08/13/23 Dicyclomine HCl (Bentyl) 20 Mg Tab, 20 MG PO TIDP PRN for PAIN, #60 TAB Prov:CLAY SONG MD 04/10/23 Past Medical History Past Medical History: Other Medical History Other: CHRONIC BACK PAIN, NEOPLASM LT LOWER LOBE, HEMOPTYSIS, SPINAL METASTAISIS Past Surgical History: Cholecystectomy Family History Family History: Negative Social History Social History: Smokers, ETOH ROS Dictation CONSTITUTIONAL: No chills, no fever, no weakness, no diaphoresis, no malaise. HEAD/FACE: No signs of trauma. EENT: No eye pain, no blurred vision, no tearing, no double vision, no ear pain, no ear discharge, no nose pain, no nasal congestion, no throat pain, no throat swelling, no mouth pain. RESPIRATORY: No cough, no orthopnea, no SOB, no stridor, no wheezing. CARDIOVASCULAR: No chest pain, no edema, no palpitations, no syncope. GASTROINTESTINAL/ABDOMINAL: No abdominal pain, no constipation, no diarrhea, no nausea, no vomiting. GENITOURINARY: No abnormal discharge, no dysuria, no frequent urination, no hematuria. No complaints of pain in the genitals. MUSCULOSKELETAL: No back pain, no gout, no joint pain, no joint swelling, no muscle pain, no muscle stiffness, no neck pain. INTEGUMENTARY: No change in color, no change in hair/nails, no dryness, no lesion, no lumps, no rash. NEUROLOGICAL/PSYCH: Anxiety HEMATOLOGIC/LYMPHATIC: Not anemic, no history of blood clots, no apparent bleeding, no bruising, glands not swollen. All Systems Negative, Except as Noted. Physical Exam Physical Exam Dictation VITAL SIGNS: Reviewed. GENERAL APPEARANCE: Alert, oriented x3, no acute distress, frail EYES: PERRL, pink conjunctivas, eyelid no trauma, anterior chamber clear. EARS: Pinnas intact and no signs of trauma or erythema. Ear canals clear and no discharge. TMs no erythema. NOSE: No discharge, no bleeding. OROPHARYNX: Mouth normal, teeth no caries, tongue pink. Pharynx clear, no erythema. Tonsils no exudates, no abscesses noted. Mucous membrane moist. NECK: Supple, non-tender, no thyromegaly, no masses, no JVD, no bruits. BREAST: Deferred. CHEST: No tenderness, no crepitus, no paradoxical movement, no retractions. LUNGS: Clear, well-ventilated, symmetric, no rales, no wheezing, no rhonchi, no stridor, good breath sounds bilaterally. HEART: Regular rate, regular rhythm, no murmur, no gallops. VASCULAR: No peripheral edema. ABDOMEN: Soft, positive bowel sounds, nondistended, no guarding, nontender, no rebound, no masses no hepatomegaly, no splenomegaly, no Nunes's sign, no hernias. RECTAL: Deferred. GENITAL: Deferred. NEUROLOGICAL: Normal speech, gross motor function intact, gross sensory function intact. MUSCULOSKELETAL: Neck nontender, full range of motion, back nontender, full range of motion. EXTREMITIES: Nontender, full range of motion. SKIN: Color pink, dry, no turgor, no rash, no lacerations, no abrasions, no contusions. LYMPHATICS: Deferred. MDM CC: Anxiety Historian: Patient Comorbidities: Current lung cancer being treated by Dr. Ricketts. On chemo and radiation. Limitations by social determinants of health: None Differential diagnosis: Anxiety, electrolyte abnormality, other. I did consider multiple etiologies, pulmonary embolism metabolic derangements, other, but the patient reports that he has 100% sure that this is anxiety. He only wants an anxiety medication this time. There is no indication for any labs or workup. He was vital signs are stable and he is nontoxic in appearance. Patient received a p.o. alprazolam here in the ER. We will discharge with a short prescription for alprazolam as well as Atarax. ED Course Orders Procedure Category Date Status Time Alprazolam 0.5mg PHA 03/19/24 Verified (Xanax 0.5mg) 17:00 Vital Signs Date Time Temp Pulse Resp B/P (MAP) Pulse Ox O2 Delivery O2 Flow Rate FiO2 03/19/24 16:07 98.4 91 16 131/91 99 Room Air* 0 21 03/19/24 16:01 98.4 91 16 131/91 99 Room Air 0 DX & DISP Disposition: Discharge Departure Impression: Primary Impression: Panic attack Condition: Stable Scripts Alprazolam (Xanax) 0.5 Mg Tablet 1 TAB PO TIDP PRN for anxiety for 10 Days, #20 TAB 0 Refills Prov: ANKUSH MARY DO 03/19/24 Hydroxyzine HCl (Atarax) 25 Mg Tab 1 CAP PO TID for anxiety for 10 Days, #30 CAP 0 Refills Prov: ANKUSH MARY DO 03/19/24 Additional Instructions: Your symptoms are consistent with a panic attack Your vital signs are stable and. I have prescribed two antianxiety medications. The 1st is hydroxyzine head take one tab for panic attack. Wait 20-30 minutes to see if this medication takes effect. This medication is not addictive. The 2nd prescription is for alprazolam. This medication is addictive. If the hydroxyzine does not work, you can try and alprazolam. Please follow up with her primary doctor or Dr. Duvall to let them know that he recently started these medicines. Please return to the emergency department as needed. Referrals: REJI SINGH MD (PCP) ANKUSH MARY DO Mar 19, 2024 16:52
[2024-03-19] MEDS: ALPRAZolam 0.5 MG TABLET PO ONE (16:53)
== END 2024-03-19 17:08 | disposition home or self-care (01) ==
LOC: EDH 16:00
DX: F41.0 Panic disorder [episodic paroxysmal anxiety] (principal); F17.200 Nicotine dependence, unspecified, uncomplicated; Z92.3 Personal history of irradiation; Z90.49 Acquired absence of other specified parts of digestive tract; Z79.899 Other long term (current) drug therapy
CPT/HCPCS: 99283

== ENCOUNTER 2024-10-09 16:42 | Emergency (ER) | payer BC ==
[~2024-10-09] VITALS: Ht 167.6 cm; Wt 71.7 kg
[~2024-10-09 16:42] MED LIST changes: +ALPR0.5T PO; +HYD25 PO
--- NOTE | 2024-10-09 17:21 | ERN ---
General Chief Complaint: Fatigue Stated Complaint: FATIGUE, LUNG CANCER STAGE 4 Time Seen by MD: 17:04 Time Seen by Midlevel: 17:04 Source: patient History of Present Illness Initial Comments Patient is a 44-year-old male with a past medical history of lung cancer on chemo pills and radiation therapy done a proximally one month ago presenting to the emergency department for evaluation of shortness for breath. Allergies: Coded Allergies: No Known Drug Allergies (Verified Allergy, Unknown, 09/13/23) Home Meds Active Scripts Alprazolam (Xanax) 0.5 Mg Tablet, 1 TAB PO TIDP PRN for anxiety for 10 Days, #20 TAB 0 Refills Prov:ANKUSH MARY DO 03/19/24 Hydroxyzine HCl (Atarax) 25 Mg Tab, 1 CAP PO TID for anxiety for 10 Days, #30 CAP 0 Refills Prov:ANKUSH MARY DO 03/19/24 Cephalexin Monohydrate (Keflex) 500 Mg Cap, 1 CAP PO BID for 10 Days, #20 CAP 0 Refills Prov:DAMARIS ESQUIVEL MD 01/04/24 Fentanyl (Fentanyl) 75 Mcg/Hour Patch.td72, 1 EACH TD ONCE for 3 Days, #1 PATCH 0 Refills Prov:KATIA SR MD 09/28/23 Ibuprofen (Ibuprofen 800 mg Tab) 800 Mg Tab, 800 MG PO Q6H PRN for PAIN for 30 Days, #120 TAB 0 Refills Prov:ROCIO MORSE MD 09/26/23 Oseltamivir Phosphate (Tamiflu) 75 Mg Cap, 75 MG PO BID, #2 CAP 0 Refills Prov:RUT WISE AGPCNP 09/17/23 Acetaminophen with Codeine (Acetaminophen-Cod #3 Tablet) 300 Mg-30 Mg Tablet, 1 TAB PO Q6H PRN for MODERATE PAIN, #30 TAB Prov:BORA KEANE ENTREPRENEUR 09/12/23 Ibuprofen (Ibuprofen 800 mg Tab) 800 Mg Tab, 800 MG PO Q6H PRN for PAIN, #30 TAB Prov:BORA KEANE ENTREPRENEUR 08/13/23 Dicyclomine HCl (Bentyl) 20 Mg Tab, 20 MG PO TIDP PRN for PAIN, #60 TAB Prov:CLAY SONG MD 04/10/23 Past Medical History Past Medical History: Other Medical History Other: CHRONIC BACK PAIN, NEOPLASM LT LOWER LOBE, HEMOPTYSIS, SPINAL METASTAISIS Past Surgical History: Cholecystectomy Family History Family History: Negative Social History Social History: Smokers, ETOH ROS Dictation CONSTITUTIONAL: Negative except for HPI HEAD/FACE: Negative except for HPI EENT: Negative except for HPI RESPIRATORY: Negative except for HPI GASTROINTESTINAL/ABDOMINAL: Negative except for HPI GENITOURINARY: Negative except for HPI MUSCULOSKELETAL: Negative except for HPI INTEGUMENTARY: Negative except for HPI NEUROLOGICAL/PSYCH: Negative except for HPI HEMATOLOGIC/LYMPHATIC: Negative except for HPI All Systems Negative, Except as noted above. 13 point review of systems assessed and all negative except for above. Physical Exam Physical Exam Dictation Vital Signs reviewed General Appearance: Alert, oriented x 3, no acute distress, well developed, nourished. Head and Face: non-traumatic. Eyes: PERRL, pink conjunctivas, eyelid no trauma, anterior chamber with arcus senilis. Ears: Pinnas intact and no signs of trauma or erythema ear canals clear and no discharge TM no erythema Nose: No discharge, no bleeding. Oropharynx: Mouth normal, tongue pink, pharynx clear,no erythema, tonsils no exudates, no abscesses noted, mucous membrane moist Neck: Supple, non-tender, no thyromegaly, no masses, no JVD, no bruits Breast:Deferred Chest:No tenderness, no crepitus, no paradoxical movement, no retractions Lungs:Clear, well-ventilated, symmetric, no rales, no wheezing, no rhonchi, no stridor, good breath sounds bilaterally Heart: Regular rate, regular rhythm, no murmur, no gallops Vascular: no peripheral edema, Abdomen: Soft, positive bowel sounds, nondistended, no guarding, nontender, no rebound, no masses no hepatomegaly, no splenomegaly, no Nunes's sign, no hernias. Rectal: Deferred Genital: Deferred Neurological: Normal speech, motor function intact, sensory function intact Musculoskeletal: Neck nontender, full range of motion, back nontender, full range of motion, Extremities: nontender, full range of motion Skin: Color pink, dry, no turgor, no rash, no lacerations, no abrasions, no contusions. Lymphatic: Deferred Results Laboratory and Microbiology Lab and Micro Result Laboratory Tests Test 10/09/24 17:30 10/09/24 17:36 Influenza Type A Antigen Negative For Type A Influenza Type B Antigen Negative For Type B SARS-CoV-2, RNA, NAAT NEGATIVE SARS CoV-2 White Blood Count 7.2 K/uL (4.8-10.8) Red Blood Count 4.19 MIL/uL (4.50-6.20) L Hemoglobin 13.1 g/dL (14.0-18.0) L Hematocrit 37.1 % (42-54) L Mean Corpuscular Volume 88.5 fL (79-99) Mean Corpuscular Hemoglobin 31.3 pg (27.0-33.0) Mean Corpuscular Hemoglobin Concent 35.3 g/dL (32.0-36.0) Red Cell Distribution Width 14.9 % (11.0-15.5) Platelet Count 83 K/uL (130-400) L Mean Platelet Volume 9.6 fL (7.5-10.5) Immature Granulocyte % (Auto) 0.3 % (0-1) Neutrophils (%) (Auto) 83.6 % (40.0-77.0) H Lymphocytes (%) (Auto) 8.2 % (21.0-51.0) L Monocytes (%) (Auto) 7.3 % (3.0-13.0) Eosinophils (%) (Auto) 0.3 % (0.0-8.0) Basophils (%) (Auto) 0.3 % (0.0-5.0) Neutrophils # (Auto) 6.0 K/uL (1.8-7.7) Lymphocytes # (Auto) 0.6 K/uL (1.0-4.8) L Monocytes # (Auto) 0.5 K/uL (0.1-1.0) Eosinophils # (Auto) 0.02 K/uL (0.00-0.70) Basophils # (Auto) 0.02 K/uL (0.00-0.20) Absolute Immature Granulocyte (auto 0.02 K/uL (0-1) Nucleated Red Blood Cells 0.0 % (0.0-0.19) White Cell Morphology Comment See comments Sodium Level 140 mmol/L (136-145) Potassium Level 4.4 mmol/L (3.5-5.1) Chloride Level 105 mmol/L (101-111) Carbon Dioxide Level 27 mmol/L (21-32) Blood Urea Nitrogen 10 mg/dL (7-18) Creatinine 0.9 mg/dL (0.5-1.3) Glomerular Filtration Rate Calc 108 mL/min (>90) Random Glucose 91 mg/dL (70-105) Total Calcium 8.6 mg/dL (8.5-10.1) Troponin I High Sensitivity < 4 ng/L (4-75) L B-Type Natriuretic Peptide 85 pg/mL (0-100) Labs Reviewed?: Yes MDM MDM: Differential diagnosis: Pneumonia, pneumothorax, dehydration There are no social concerns with this patient. Prescription drug management Prescriptions will include: None Medical management and examination interpretation discussions were had by me with other qualified healthcare professionals as indicated for the patient's care. ED Course Orders Procedure Category Date Status Time 12 Lead Ekg Tracing- EKG 10/09/24 Complete Technical 17:13 Cbc With Differential LAB 10/09/24 Complete 17:13 Basic Metabolic Panel LAB 10/09/24 Complete 17:13 B-Type Natriuretic LAB 10/09/24 Complete Peptide 17:13 Chest 1vw RAD 10/09/24 Resulted 17:13 Troponin I High LAB 10/09/24 Complete Sensitivity 17:13 Covid Rna Naat LAB 10/09/24 Complete 17:13 Influenza Type A & B, LAB 10/09/24 Complete Rapid 17:13 Morphine 2mg Syg PHA 10/09/24 Complete (Morphine 2mg Syg) 17:30 Ondansetron 4mg Inj PHA 10/09/24 Complete (Zofran 4mg Inj) 17:30 0.9%Nacl 1000ml (Ns PHA 10/09/24 Complete 1000ml) 17:30 Current Medications Medications (Trade) Dose Ordered Sig/Williams Route PRN Reason Start Time Stop Time Status Last Admin Dose Admin Morphine Sulfate (morPHINE 2MG SYG) 2 mg ONCE ONCE IVP 10/09/24 17:30 10/09/24 17:31 DC 10/09/24 17:25 Ondansetron HCl (zoFRAN 4MG INJ) 4 mg ONCE ONCE IVP 10/09/24 17:30 10/09/24 17:31 DC 10/09/24 17:25 Sodium Chloride 1,000 ml @ 0 mls/hr ONCE ONCE IV 10/09/24 17:30 10/09/24 17:31 DC 10/09/24 17:24 Vital Signs Date Time Temp Pulse Resp B/P (MAP) Pulse Ox O2 Delivery O2 Flow Rate FiO2 10/09/24 20:56 83 16 115/76 100 Room Air* 0 10/09/24 19:24 65 16 116/78 100 Room Air* 0 10/09/24 18:52 98.1 68 22 114/77 97 Room Air* 0 10/09/24 17:38 98.1 75 14 118/83 97 Room Air* 0 10/09/24 16:58 98.1 88 16 127/82 100 Room Air* 0 10/09/24 16:43 97.7 106 18 129/90 97 Room Air DX & DISP Disposition: Discharge Departure Impression: Primary Impression: Dyspnea on exertion Additional Impression: Thrombocytopenia Condition: Stable Additional Instructions: Please follow up with your oncologist as prescribed. Referrals: REJI SINGH MD (PCP) Time of Disposition: 21:16 I have reviewed the case, and I agree with, Diagnosis and Plan I performed the substantive portion of the visit. I have reviewed and personally made and approve the management plan that is documented in the note by myself or the TALIA. I acknowledge for responsibility for the patient's management plan. PASTORA LUCIO Oct 09, 2024 17:21
[2024-10-09] MEDS: 0.9%NACL 1000ML 1,000 ML IV ONE (17:24)
--- NOTE | 2024-10-09 17:27 | EKG ---
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
[2024-10-09 17:45] LABS: IMMATURE GRANULOCYTE ABSOLUTE 0.02 K/uL (0-1); NUCLEATED RED BLOOD CELLS 0.0 % (0.0-0.19); RED BLOOD CELL COUNT(AUTO) 4.19 MIL/uL (4.50-6.20); RED CELL DISTRIBUTION WIDTH 14.9 % (11.0-15.5); WHITE BLOOD COUNT (AUTO) 7.2 K/uL (4.8-10.8)
[2024-10-09 17:50] LABS: SARS-CoV-2, RNA, NAAT NEGATIVE SARS CoV-2 (NEGATIVE)
[2024-10-09 17:55] LABS: CREATININE 0.9 mg/dL (0.5-1.3); GLOMERULAR FILTR. RATE CALC 108.0 mL/min (>90); GLUCOSE,RANDOM 91.0 mg/dL (70-105); SODIUM SERUM 140.0 mmol/L (136-145); UREA NITROGEN, BLOOD 10.0 mg/dL (7-18)
[2024-10-09 17:56] LABS: INFLUENZA TYPE A Negative For Type A (NEGATIVE); INFLUENZA TYPE B Negative For Type B (NEGATIVE)
[2024-10-09 18:42] LABS: PLATELET COUNT (AUTO) 83 K/uL (130-400)
[2024-10-09 18:52] VITALS: TEMP 98.1
--- NOTE | 2024-10-09 19:04 | HMCIMG ---
EXAMINATION: CR Chest, 1 View. CLINICAL HISTORY: Patient presents with shortness of breath. COMPARISON: Chest radiograph dated November 17, 2023. FINDINGS: LUNGS: There is no mass, infiltrate, or acute pulmonary abnormality. PLEURAL SPACES: No pleural effusion or pneumothorax. MEDIASTINUM: The cardiomediastinal silhouette is within normal limits. BONES: No aggressive appearing osseous lesion seen. IMPRESSION: Implantable port in the right anterior chest wall with tip in appropriate position. No acute cardiopulmonary pathology. /[place]
[2024-10-09 21:47] VITALS: BP 118/77; PULSE 78; RESP 16; O2SAT 100
== END 2024-10-09 21:47 | disposition home or self-care (01) ==
LOC: EDH 16:42
DX: R06.09 Other forms of dyspnea (principal); D69.6 Thrombocytopenia, unspecified; F17.200 Nicotine dependence, unspecified, uncomplicated; Z85.118 Personal history of other malignant neoplasm of bronchus and lung; Z90.49 Acquired absence of other specified parts of digestive tract; Z92.3 Personal history of irradiation; Z20.822 Contact with and (suspected) exposure to COVID-19
CPT/HCPCS: 99284; 96374; 71045; 87635; 96375; 84484; 80048; 83880; 85025; 87804 ×2; 36415; 96376; 93005; J2270 ×2; J2405